=== PATIENT | male | born 1980 ===

== ENCOUNTER 2018-07-01 11:36 | Emergency (ER) | payer MEDICAID ==
[2018-07-01] MEDS ORDERED: Sodium Chloride 0.9% 1,000 ML IV ONE (12:20)
--- NOTE | 2018-07-01 12:21 | C.PDOC ---
History Of Present Illness 37 year old male presents to the emergency department with complaints of right sided pain since this morning. Patient reports two episodes of vomiting, and reports genitourinary discomfort and decreased urination. He denies diarrhea and a history of past medical issues. Time Seen by Provider: 07/01/18 12:00 Chief Complaint (Nursing): Male Genitourinary History Per: Patient History/Exam Limitations: no limitations Onset/Duration Of Symptoms: Hrs Current Symptoms Are (Timing): Still Present Quality Of Discomfort: "Pain" Associated Symptoms: Vomiting, Urinary Symptoms. denies: Diarrhea Past Medical History Reviewed: Historical Data, Nursing Documentation, Vital Signs Vital Signs: Last Vital Signs Temp 98.4 F 07/01/18 11:39 Pulse 77 07/01/18 11:39 Resp 20 07/01/18 11:39 BP 197/139 H 07/01/18 11:39 Pulse Ox 95 07/01/18 12:42 - Medical History PMH: No Chronic Diseases Surgical History: No Surg Hx Family History: States: No Known Family Hx - Social History Hx Alcohol Use: No Hx Substance Use: No - Immunization History Hx Tetanus Toxoid Vaccination: No Hx Influenza Vaccination: No Hx Pneumococcal Vaccination: No Review Of Systems Except As Marked, All Systems Reviewed And Found Negative. Gastrointestinal: Positive for: Vomiting Genitourinary: Positive for: Other (decreased urination) Musculoskeletal: Positive for: Back Pain (right flank pain) Physical Exam - Physical Exam Appears: Non-toxic, In Acute Distress Skin: Warm, Dry Head: Atraumatic, Normacephalic Eye(s): bilateral: Normal Inspection Neck: Normal, Supple Chest: Symmetrical Cardiovascular: Rhythm Regular, No Murmur Respiratory: Normal Breath Sounds, No Rales, No Rhonchi, No Wheezing Gastrointestinal/Abdominal: Soft, Tenderness (right lower quadrant), No Guarding , No Rebound, No Other (McBurney's) Back: CVA Tenderness Extremity: Normal ROM ED Course And Treatment - Laboratory Results Result Diagrams: 07/01/18 12:56 07/01/18 12:56 O2 Sat by Pulse Oximetry: 95 (RA) Pulse Ox Interpretation: Normal Medical Decision Making Medical Decision Making: Assessment: Kidney stone Plan: CT Abdomen and Pelvis CMP Lipase CBC NaCl IV Fluids Toradol 30mg IVP Zofran 4mg IVP Urine Culture Urinalysis 1436 - renal colic patient resting comfortably and states improvement. Will discharge home to follow up with urology within 2 days. Disposition Counseled Patient/Family Regarding: Studies Performed, Diagnosis, Need For Followup, Rx Given - Disposition Referrals: Ajay Andres MD [Staff Provider] - Disposition: HOME/ ROUTINE Disposition Time: 14:39 Condition: IMPROVED Additional Instructions: follow up with urology within 2 days call to make an appointment take medications as needed for pain return to ER if symptoms worsens or progress Prescriptions: Acetaminophen/Codeine [Tylenol/Codeine 300 MG/30 MG] 1 tab PO Q6H PRN #12 tab PRN Reason: Pain, Severe (8-10) Naproxen [Naprosyn] 500 mg PO BID PRN #16 tab PRN Reason: Pain, Moderate (4-7) Ondansetron ODT [Zofran ODT] 4 mg PO TID PRN #12 odt PRN Reason: Nausea/Vomiting Instructions: Renal Colic (DC) Forms: [facility] (Latvian), General Discharge Instructions, Work Excuse - Clinical Impression Clinical Impression: Renal colic on right side - Scribe Statement The provider has reviewed the documentation as recorded by the Scribe (Reymundo Rivera) Provider Attestation: All medical record entries made by the Scribe were at my direction and personally dictated by me. I have reviewed the chart and agree that the record accurately reflects my personal performance of the history, physical exam, medical decision making, and the department course for this patient. I have also personally directed, reviewed, and agree with the discharge instructions and disposition.
[2018-07-01] MEDS ORDERED: Sodium Chloride 0.9% 1,000 ML ONE (12:49)
[2018-07-01 12:59] LABS: BASO # 0.1 K/uL (0.0-0.2); BASO % 0.4 % (0.0-2.0); HEMOGLOBIN 15.4 g/dL (12.0-18.0); LYMPH # 1.2 K/uL (1.0-4.3); MEAN CELL VOLUME 81.9 fL (80.0-94.0); MEAN CORPUSCULAR HEMOGLOBIN 29.2 pg (27.0-31.0); MEAN CORPUSCULAR HGB CONC 35.6 g/dL (33.0-37.0); MONO # 0.6 K/uL (0.0-0.8); MONO % 4.3 % (0.0-10.0); NEUT # 11.7 K/uL (1.8-7.0); NEUT % 86.3 % (50.0-75.0); PLATELET COUNT 321 K/uL (130-400); RBC 5.27 Mil/uL (4.40-5.90); RED CELL DISTRIBUTION WIDTH 13.4 % (11.5-14.5); WHITE BLOOD COUNT 13.6 K/uL (4.8-10.8)
[2018-07-01 13:13] LABS: ALB/GLOB RATIO 1.5 (1.0-2.1); ALBUMIN 4.6 g/dL (3.5-5.0); ALT/SGPT 64 U/L (21-72); AST/SGOT 31 U/L (17-59); BLOOD UREA NITROGEN 12 mg/dL (9-20); CALCIUM 9.4 mg/dl (8.6-10.4); GFR NON-AFRICAN AMERICAN > 60; LIPASE 75 U/L (23-300)
[2018-07-01 13:31] LABS: MONOCYTE 7 % (0-10); TOTAL CELLS COUNTED 100
[2018-07-01 13:32] LABS: LYMPHOCYTE 10 % (20-40); NEUTROPHIL 83 % (50-75); PLATELET ESTIMATE NORMAL (NORMAL)
--- NOTE | 2018-07-01 13:39 | CT ---
Date of service: 07/01/2018 PROCEDURE: CT Abdomen and Pelvis without intravenous contrast HISTORY: abd pain COMPARISON: Not available TECHNIQUE: Without contrast.. Contrast dose: 0 Radiation dose: Total exam DLP = 1027.53 mGy-cm. This CT exam was performed using one or more of the following dose reduction techniques: Automated exposure control, adjustment of the mA and/or kV according to patient size, and/or use of iterative reconstruction technique. FINDINGS: LOWER THORAX: Unremarkable. LIVER: Normal size, contour. Diffusely diminished attenuation consistent with mild fatty infiltration. No focal mass. No biliary ductal dilatation. Mild focal fatty sparing adjacent to gallbladder fossa. GALLBLADDER AND BILE DUCTS: Unremarkable. PANCREAS: Unremarkable. No gross lesion or ductal dilatation. SPLEEN: Unremarkable. ADRENALS: Unremarkable. No mass. KIDNEYS AND URETERS: Mild right hydroureteronephrosis. Mild right perinephric stranding. Periureteric stranding about the mid ureter. Obstructing 4 mm calculus in the distal right ureter proximal to the ureterovesical junction. No renal calculus. No left hydronephrosis or hydroureter. No renal mass. VASCULATURE: Unremarkable. No aortic aneurysm. BOWEL: Unremarkable. No obstruction. No gross mural thickening. APPENDIX: Unremarkable. Normal appendix. PERITONEUM: Unremarkable. No free fluid. No free air. LYMPH NODES: Unremarkable. No enlarged lymph nodes. BLADDER: Unremarkable. REPRODUCTIVE: Normal prostate BONES: No acute fracture. OTHER FINDINGS: None. IMPRESSION: Obstructing 4 mm distal right ureteral calculus with mild hydroureteronephrosis, perinephric and periureteric stranding. Mild fatty infiltration of the liver. No additional abnormality.
[2018-07-01 14:21] LABS: SQUAMOUS EPITHIAL 1 /hpf (0-5); URINE BACTERIA RARE (<OCC)
[2018-07-01 14:22] LABS: URINE BILIRUBIN NEGATIVE (NEGATIVE); URINE BLOOD 3+ (NEGATIVE); URINE CLARITY Clear (Clear); URINE COLOR Yellow (YELLOW); URINE GLUCOSE (UA) NORMAL (Normal); URINE LEUKOCYTE ESTERASE NEG Leu/uL (Negative); URINE PROTEIN NEGATIVE (NEGATIVE); URINE UROBILINOGEN NORMAL mg/dL (0.2-1.0)
[2018-07-01 14:48] VITALS: RESP 18
[2018-07-01] MEDS ORDERED: Labetalol 25mg/5ml Syringe IVP STA (14:52)
[2018-07-01 15:28] VITALS: BP 165/77; PULSE 78; TEMP 98; O2SAT 99
== END 2018-07-01 15:29 | disposition home or self-care (01) ==
LOC: C.ER 11:36
DX: N13.2 Hydronephrosis with renal and ureteral calculous obstruction (principal)
CPT/HCPCS: 74176; 80053; 81001; 83690; 85025; 87086; 96374; 96375; 99285; J1885; J2405; J7030

== ENCOUNTER 2018-08-17 14:09 | Emergency (ER) | payer MEDICAID, OTHER ==
[2018-08-17 14:29] VITALS: TEMP 99.1
[2018-08-17] MEDS ORDERED: Labetalol 5mg/ml (4ml) ONE ×2 (14:50→15:37)
[2018-08-17] MEDS ORDERED: Labetalol 25mg/5ml Syringe IVP STA ×2 (14:52→15:25)
--- NOTE | 2018-08-17 14:52 | C.PDOC ---
History Of Present Illness 37 year old male, with Hx of HTN, presents to ED with complaints of posterior localized headache x8 days. States he did not have similar symptoms before. Patient denies any nausea or vomiting. Patient took 2 Motrin 2 days ago with no relief. BP: 203/129. Time Seen by Provider: 08/17/18 14:41 Chief Complaint (Nursing): Headache History Per: Patient History/Exam Limitations: no limitations Onset/Duration Of Symptoms: Days Current Symptoms Are (Timing): Still Present Past Medical History Reviewed: Historical Data, Nursing Documentation, Vital Signs Vital Signs: Last Vital Signs Temp 99.1 F 08/17/18 14:25 Pulse 77 08/17/18 14:25 Resp 20 08/17/18 14:25 BP 219/140 H 08/17/18 14:25 Pulse Ox 98 08/17/18 14:25 Family History: States: No Known Family Hx - Social History Hx Alcohol Use: No Hx Substance Use: No - Immunization History Hx Tetanus Toxoid Vaccination: No Hx Influenza Vaccination: No Hx Pneumococcal Vaccination: No Review Of Systems Except As Marked, All Systems Reviewed And Found Negative. Cardiovascular: Negative for: Chest Pain Respiratory: Negative for: Shortness of Breath Gastrointestinal: Negative for: Nausea, Vomiting Neurological: Positive for: Headache Physical Exam - Physical Exam Appears: Non-toxic, No Acute Distress Skin: Warm, Dry Head: Atraumatic, Normacephalic Eye(s): bilateral: Normal Inspection (No photophobia), PERRL, EOMI Oral Mucosa: Moist Neck: Supple Cardiovascular: Rhythm Regular, No Murmur Respiratory: Normal Breath Sounds, No Rales, No Rhonchi, No Wheezing Neurological/Psych: Oriented x3, Normal Speech, Other (No focal deficits) ED Course And Treatment - Laboratory Results Result Diagrams: 08/17/18 15:00 08/17/18 15:00 ECG: Interpreted By Al ECG Rhythm: Sinus Rhythm ECG Interpretation: Normal Rate From EC O2 Sat by Pulse Oximetry: 98 (RA) Pulse Ox Interpretation: Normal - CT Scan/US CT Head Other Rad Studies (CT/US): Read By Radiologist, Radiology Report Reviewed CT/US Interpretation: FINDINGS: HEMORRHAGE: No intracranial hemorrhage. BRAIN: No mass effect or edema. No atrophy or chronic microvascular ischemic changes. VENTRICLES: No hydrocephalus. CALVARIUM: Unremarkable. PARANASAL SINUSES: Unremarkable as visualized. No significant inflammatory changes. MASTOID AIR CELLS: Unremarkable as visualized. No inflammatory changes. OTHER FINDINGS: None. IMPRESSION: No acute intracranial pathology identified. Progress - Re-Evaluation Re-evaluation Note: 08/17/18 16:06 NYE RESOLVED. NEURO INTACT [facility] PRIOR. PERSIST HTN. WILL CONT DOSE, OBS 08/17/18 17:24 166/100. ASYMPT NEURO INTACT. DC FU PMD - Data Reviewed Data Reviewed: Lab, Diagnostic imaging, EKG, Old records - Critical Care Citical Care: Excluding Proc Time Critical Care Time: 90 minutes Medical Decision Making Medical Decision Making: Plan: --CT Head --EKG --Labs --Morphine --Reglan --Trandate --Tylenol Disposition Counseled Patient/Family Regarding: Studies Performed, Diagnosis, Need For Followup, Rx Given - Disposition Referrals: YOUR,PMD [Other] Disposition: HOME/ ROUTINE Disposition Time: 17:25 Condition: IMPROVED Prescriptions: hydroCHLOROthiazide [Hydrodiuril] 25 mg PO BID #60 tab Instructions: High Blood Pressure (DC) Forms: [facility] (Tongan) - Clinical Impression Clinical Impression: Hypertensive urgency, Headache - Scribe Statement The provider has reviewed the documentation as recorded by the Gino Baldwin Provider Attestation: All medical record entries made by the Nyaibgonzalo were at my direction and personally dictated by me. I have reviewed the chart and agree that the record accurately reflects my personal performance of the history, physical exam, medical decision making, and the department course for this patient. I have also personally directed, reviewed, and agree with the discharge instructions and disposition.
[2018-08-17 15:12] LABS: BASO % 0.5 % (0.0-2.0); EOS # 0.1 K/uL (0.0-0.7); EOS % 1.3 % (0.0-4.0); HEMOGLOBIN 15.6 g/dL (12.0-18.0); LYMPH # 2.2 K/uL (1.0-4.3); LYMPH % 28.5 % (20.0-40.0); MEAN CELL VOLUME 82.5 fL (80.0-94.0); MEAN CORPUSCULAR HEMOGLOBIN 29.2 pg (27.0-31.0); MEAN CORPUSCULAR HGB CONC 35.3 g/dL (33.0-37.0); MONO # 0.5 K/uL (0.0-0.8); MONO % 6.4 % (0.0-10.0); NEUT # 4.8 K/uL (1.8-7.0); NEUT % 63.3 % (50.0-75.0); RBC 5.34 Mil/uL (4.40-5.90); RED CELL DISTRIBUTION WIDTH 13.7 % (11.5-14.5); WHITE BLOOD COUNT 7.6 K/uL (4.8-10.8)
[2018-08-17 15:17] VITALS: RESP 18
[2018-08-17 15:21] LABS: ALB/GLOB RATIO 1.3 (1.0-2.1); ALBUMIN 4.5 g/dL (3.5-5.0); ALT/SGPT 49 U/L (21-72); AST/SGOT 28 U/L (17-59); BLOOD UREA NITROGEN 11 mg/dL (9-20); CALCIUM 9.5 mg/dl (8.6-10.4); GFR NON-AFRICAN AMERICAN > 60
--- NOTE | 2018-08-17 15:36 | CT ---
Date of service: 08/17/2018 PROCEDURE: CT HEAD WITHOUT CONTRAST. HISTORY: Headache UNCONTROLL HTN RO BLEED COMPARISON: None available. TECHNIQUE: Axial computed tomography images were obtained through the head/brain without intravenous contrast. Radiation dose: Total exam DLP = 1062.19 mGy-cm. This CT exam was performed using one or more of the following dose reduction techniques: Automated exposure control, adjustment of the mA and/or kV according to patient size, and/or use of iterative reconstruction technique. FINDINGS: HEMORRHAGE: No intracranial hemorrhage. BRAIN: No mass effect or edema. No atrophy or chronic microvascular ischemic changes. VENTRICLES: No hydrocephalus. CALVARIUM: Unremarkable. PARANASAL SINUSES: Unremarkable as visualized. No significant inflammatory changes. MASTOID AIR CELLS: Unremarkable as visualized. No inflammatory changes. OTHER FINDINGS: None. IMPRESSION: No acute intracranial pathology identified.
[2018-08-17] MEDS ORDERED: Enalaprilat 2.5 MG/2 ML IV ONE (16:05)
[2018-08-17] MEDS ORDERED: Enalaprilat 2.5 MG/2 ML ONE (16:15)
[2018-08-17 17:25] VITALS: BP 166/100; PULSE 65
[2018-08-17 17:26] VITALS: O2SAT 98
--- NOTE | 2018-08-18 23:06 | CARD ---
APPROVED REPORT Date of service: 08/17/2018 EKG Measurement Heart [id number] <Conclusion> Normal sinus rhythm Incomplete right bundle branch block Inferior infarct, age undetermined Abnormal ECG
== END 2018-08-17 17:39 | disposition home or self-care (01) ==
LOC: C.ER 14:09
DX: I16.0 Hypertensive urgency (principal); R51 Headache
CPT/HCPCS: 70450; 80053; 85025; 93005; 96374; 96375; 96376; 99285; J2270; J2765

== ENCOUNTER 2018-08-19 00:09 | Emergency (ER) | payer OTHER ==
--- NOTE | 2018-08-19 01:02 | C.PDOC ---
History Of Present Illness 37 year old male with PMHx of HTN presents to the ED c/o headache and elevated blood pressure. Patient was seen in the ED08/17/18 with similar complaints and had a negative work up with blood work and CT scan. Patient was started on HCTZ 25 mg BID. However patient still complains of dull headache and elevated blood pressure. Patient denies visual changes, headache, nausea, vomit, dizziness, weakness, numbness, CP, SOB, palpitations, slurred speech. Time Seen by Provider: 08/19/18 00:58 Chief Complaint (Nursing): High Blood Pressure History Per: Patient History/Exam Limitations: no limitations Onset/Duration Of Symptoms: Days Current Symptoms Are (Timing): Still Present Associated Symptoms: Headache Quality Of Symptoms: Asymptomatic Exacerbating Factor(s): Pos: Recent Change In Medication Recent travel outside of the [place]: No Additional History Per: Patient Past Medical History Reviewed: Historical Data, Nursing Documentation, Vital Signs Vital Signs: Last Vital Signs Temp 98.5 F 08/19/18 00:38 Pulse 82 08/19/18 00:38 Resp 16 08/19/18 00:38 BP 165/118 H 08/19/18 00:38 Pulse Ox 100 08/19/18 00:38 - Medical History PMH: HTN Surgical History: No Surg Hx Family History: States: Unknown Family Hx - Social History Hx Alcohol Use: No Hx Substance Use: No - Immunization History Hx Tetanus Toxoid Vaccination: No Hx Influenza Vaccination: No Hx Pneumococcal Vaccination: No Review Of Systems Constitutional: Negative for: Fever, Chills Eyes: Negative for: Vision Change Cardiovascular: Negative for: Chest Pain, Palpitations Respiratory: Negative for: Shortness of Breath Gastrointestinal: Negative for: Nausea, Vomiting Neurological: Positive for: Headache. Negative for: Weakness, Numbness, Dizziness Physical Exam - Physical Exam Appears: Non-toxic, No Acute Distress Skin: Warm, Dry Head: Normacephalic Eye(s): bilateral: Normal Inspection Neck: Supple Chest: Symmetrical Cardiovascular: Rhythm Regular Respiratory: No Rales, No Rhonchi, No Wheezing Gastrointestinal/Abdominal: Soft, No Tenderness, No Guarding, No Rebound Extremity: Bilateral: Atraumatic, Normal Color And Temperature, Normal ROM Neurological/Psych: Oriented x3, Normal Speech, Normal Cognition Gait: Steady ED Course And Treatment O2 Sat by Pulse Oximetry: 100 (ON RA) Pulse Ox Interpretation: Normal Progress Note: Plan: - Catapres 0.1 mg PO. - Motrin 800 mg PO. Pt has appointment with Dr reza this am. labs given. Pt is symptoms free and wants to go home Disposition Counseled Patient/Family Regarding: Studies Performed, Diagnosis, Need For Followup - Disposition Referrals: Claudio Reza DO [Staff Provider] - Disposition: HOME/ ROUTINE Disposition Time: 01:02 Condition: FAIR Additional Instructions: Please return if symptoms recur. Increase the HCTZ to 50 mg in AM and 25 at night Instructions: High Blood Pressure (DC) Forms: [employer] (Gambian) - Clinical Impression Clinical Impression: Hypertension - Scribe Statement The provider has reviewed the documentation as recorded by the Scribe Sebas Rai All medical record entries made by the Scribe were at my direction and personally dictated by me. I have reviewed the chart and agree that the record accurately reflects my personal performance of the history, physical exam, medical decision making, and the department course for this patient. I have also personally directed, reviewed, and agree with the discharge instructions and disposition.
[2018-08-19 03:25] VITALS: BP 153/105; PULSE 69; RESP 20; TEMP 97.9
[2018-08-19 03:33] VITALS: O2SAT 100
== END 2018-08-19 03:49 | disposition home or self-care (01) ==
LOC: C.ER 00:09
DX: I10 Essential (primary) hypertension (principal)